=== PATIENT | female | born 1960 | race Caucasian/White ===

== ENCOUNTER 2024-07-15 06:49 | Emergency (ER) | payer OTHER, BC, SELFPAY ==
[2024-07-15 06:49] VITALS: BMI 37.8
[2024-07-15 07:12] VITALS: BP 164/80; PULSE 89; RESP 18; TEMP 36.6; O2SAT 96; BMI 39.2
--- NOTE | 2024-07-15 07:12 | PC.NURSE ---
pain lower right quadrant started 5 days ago describes it as throbbing and shooting pain
--- NOTE | 2024-07-15 07:19 | XR_ITS ---
Examination: CT abdomen and pelvis without contrast. Coronal 3-D reconstructions. Sagittal 2-D reconstructions. Date and time of exam:July 15, 2024 0740 hrs. Indications: Right upper abdominal pain beginning 5 days ago, hysterectomy cholecystectomy CTDI: vol (mGy): 14.9 DLP: (mGycm): 784 Technique: Axial images of the abdomen have been obtained, 3 mm slice thickness Intravenous contrast material has not been administered. Low dose protocols were performed. One or more of the following dose reduction techniques were used; automated exposure control, adjustment of the mA and/or KV according to patient size, use of iterative reconstruction technique. Findings: Thickening of the gastric mucosa in the antral region axial image 59 No focal liver or splenic lesion Absent gallbladder No pancreatic or adrenal mass No renal or ureteral calculi, no hydronephrosis Aorta normal size Normal appendix No bowel obstruction No diverticulitis Contracted urinary bladder Absent uterus No adnexal mass Moderate osteopenia Impression: Thickening of the mucosa in the gastric antrum, consider antral gastritis
--- NOTE | 2024-07-15 07:20 | PD.EDRME ---
Rapid Medical Screening Exam RME Arrival date/time: 07/15/24 06:49 63-year-old female with past medical history of hysterectomy presents emergency department complaining of right lower quadrant abdominal pain that is been ongoing for 5 days. Chief Complaint: Abdominal Pain Vital signs: Vital Signs Temperature 97.8 F 07/15/24 07:12 Pulse Rate 89 07/15/24 07:12 Respiratory Rate 18 07/15/24 07:12 Blood Pressure 164/80 H 07/15/24 07:12 Pulse Oximetry (%) 96 07/15/24 07:12 Oxygen Delivery Method Room Air 07/15/24 07:12 Vital signs reviewed by provider: Yes
[2024-07-15 08:10] LABS: Collection Type, Urine Clean Catch; RBC,Urine 0 /hpf (0-3)
[2024-07-15 08:17] LABS: Basophils % (Auto) 1 % (0-2.5); Eosinophils # (Auto) 0.2 Thou/mm3 (0.0-0.5); Eosinophils % (Auto) 3 % (0-10); Hematocrit 36.3 % (36.0-46.0); Hemoglobin 12.1 g/dL (12.0-16.0); Immature Granulocytes % (Auto) 0 % (0-0); Immature Granulocytes Auto 0.02 Thou/mm3 (0.00-0.00); Lymphocytes # (Auto) 1.6 Thou/mm3 (1.0-4.8); Lymphocytes % (Auto) 24 % (10-50); Mean Corpuscular HGB Conc 33.3 g/dl (31.0-37.0); Mean Corpuscular Volume 87 fL (80-100); Monocytes # (Auto) 0.5 Thou/mm3 (0.0-0.8); Monocytes % (Auto) 8 % (0-12); Neutrophils # (Auto) 4.1 Thou/mm3 (1.8-7.7); Neutrophils % (Auto) 64 % (37-80); Nucleated Red Blood Cell % 0 /100 WBC (0); Platelet Count 178 Thou/mm3 (140-440); RDW Standard Deviation 43.6 fL (36.4-46.3); Red Blood Count 4.17 Miln/mm3 (4.00-5.20); White Blood Count 6.4 Thou/mm3 (3.6-11.0)
[2024-07-15 08:37] LABS: Alanine Aminotransferase 23 U/L (10-49); Albumin, Serum 4.6 gm/dL (3.4-4.8); Albumin/Globulin Ratio 1.7 (1.2-2.2); Alkaline Phosphatase 121 U/L (46-116); Anion Gap 7 (7-16); Aspartate Amino Transferase 21 U/L (0-34); BUN/Creatinine Ratio 13 Ratio (12-20); Bilirubin,Total 0.5 mg/dL (0.3-1.2); Blood Urea Nitrogen 13 mg/dL (9-23); Calcium 9.5 mg/dL (8.3-10.6); Calcium (Corrected) 9.5 mg/dL (8.5-10.1); Carbon Dioxide 28.4 mMol/L (20.0-31.0); Chloride 102 mMol/L (98-107); Estimated Creatinine Clearance 69.3 mL/min (>60); Globulin 2.7 gm/dL (2.3-3.5); Glucose 100 mg/dL (74-106); Lipase 53 U/L (12-53); Osmolality,Calculated 273 (275-295); Sodium 137 mMol/L (136-145); Total Protein 7.3 gm/dL (5.7-8.2); eGFR > 60 See Note
[2024-07-15 08:39] LABS: Bilirubin,Urine Negative (Negative); Blood,Urine Negative (Negative); Clarity,Urine Clear (Clear/Hazy); Color,Urine Colorless (Lt Yel-Yel); Culture Indicated,Urine Not Indicated; Glucose, Urine Negative (Negative); Ketones,Urine Negative (Negative); Leukocyte Esterase,Urine Negative (Negative); Nitrite,Urine Negative (Negative); PH,Urine 6.5 (5.0-7.0); Protein,Urine Negative (Neg - Trace); Specific Gravity,Urine 1.007 (1.001-1.035); Squamous Epithelial Cell,Urine 1 /hpf (0-5); Urobilinogen,Urine Negative mg/dL (0.0-1.0); WBC,Urine < 1 /hpf (0-5)
[2024-07-15] MEDS: KETOROLAC INJ 60 MG/2 ML VIAL 30 MG IM (09:00)
--- NOTE | 2024-07-15 09:21 | EDNOTE_ITS ---
ED Abdominal Pain RME/HPI General Chief Complaint: Abdominal Pain Stated complaint: RIGHT LOWER ABD PAIN Time seen by provider: 07/15/24 08:05 Arrival date/time: 07/15/24 06:49 63-year-old female with past medical history of hysterectomy presents emergency department complaining of right lower quadrant abdominal pain that is been ongoing for 5 days. Patient denies any fever, chills, nausea vomiting, diarrhea, dysuria, hematuria, vaginal bleeding, or any other associated symptom. Source: patient Mode of arrival: ambulatory Limitations: no limitations RME / HPI RME / HPI narrative: 07/15/24 06:49 63-year-old female with past medical history of hysterectomy presents emergency department complaining of right lower quadrant abdominal pain that is been ongoing for 5 days. Related Data Home Medications ?Medication ?Instructions ?Recorded ?Confirmed lisinopril 40 mg tablet 40 mg PO QDAY 10/30/19 09/03/23 fluoxetine 40 mg capsule 40 mg PO DAILY 09/02/23 09/03/23 omeprazole magnesium 20 mg 20 mg PO QDAY 09/02/23 09/03/23 tablet,delayed release (Prilosec OTC) Previous Rx's ?Medication ?Instructions ?Recorded ibuprofen 800 mg tablet 800 mg PO TID PRN pain #30 tabs 09/01/23 docusate sodium 100 mg capsule 100 mg PO BID #40 caps 09/03/23 (Colace) hydrocodone 5 mg-acetaminophen 325 1 tab PO Q6H PRN pain (scale score 09/03/23 mg tablet 7-10) #20 tabs ibuprofen 600 mg tablet 600 mg PO Q8H PRN pain (scale 09/03/23 score 4-6) #15 tabs acetaminophen 300 mg-codeine 30 mg 1 tab PO TID PRN pain #20 tabs 10/15/23 tablet Allergies Allergy/AdvReac Type Severity Reaction Status Date / Time rifampin Allergy Mild Rash Verified 07/15/24 06:52 Sulfa (Sulfonamide Allergy Unknown Rash Verified 07/15/24 06:52 Antibiotics) Review of Systems Review of Systems Systems Reviewed: All systems reviewed, normal except as documented Constitutional Constitutional: Reports system reviewed and no additional complaints, except as documented, Denies body ache(s), Denies chills and Denies fever(s) Eyes Eyes: Reports system reviewed and no additional complaints, except as documented and Denies change in vision ENT Ears, Nose, Mouth, and Throat: Reports system reviewed and no additional complaints, except as documented, Denies disequilibrium, Denies dizziness, Denies sore throat and Denies vertigo Cardiovascular Cardiovascular: Reports system reviewed and no additional complaints, except as documented, Denies chest pain and Denies dyspnea Respiratory Respiratory: Reports system reviewed and no additional complaints, except as documented, Denies chest congestion, Denies cough and Denies dyspnea Gastrointestinal Gastrointestinal: Reports system reviewed and no additional complaints, except as documented, Reports abdominal pain, Denies nausea and Denies vomiting Musculoskeletal Musculoskeletal: Reports system reviewed and no additional complaints, except as documented, Denies abnormal gait and Denies arthralgias Integumentary/Breasts Skin/Breast: Reports system reviewed and no additional complaints, except as documented, Denies erythema, Denies rash and Denies wounds Neurologic Neurologic: Reports system reviewed and no additional complaints, except as documented, Denies abnormal gait, Denies disequilibrium, Denies dizziness and Denies vertigo Past Medical History Past Medical History NEUROLOGIC: Negative Neurological Disorders or Seizures CARDIAC: Positive Cardiac Disorders and Hypertension; Negative Congestive Heart Failure RESPIRATORY: Positive Asthma and Bronchitis; Negative Chronic Obstructive Pulmonary Disease (COPD) GASTROINTESTINAL: Positive Gastrointestinal Disorders, Gall Bladder Disease, Irritable Bowel and Obesity GENITOURINARY: Negative Genitourinary Disorders or Renal Disease REPRODUCTIVE: Positive Previous Pregnancies (x2) MUSCULOSKELETAL: Positive Musculoskeletal Disorders and Fibromyalgia ENDOCRINE: Negative Endocrine Disorders, Diabetes Mellitus Type 1 or Diabetes Mellitus Type 2 HEMATOLOGIC: Negative Blood Disorders PSYCHO/SOCIAL: Positive Depression and Anxiety OTHER HISTORY: Positive Hospitalization (surgery), Chicken Pox, Cancer and Cervical Cancer (1996); Negative Autoimmune Disease, Shingles, Blood Transfusions, Blood Transfusion Reaction or Anesthesia Reactions Family History FAMILY HISTORY: Positive Family Psychiatric Problems, Family Cardiac Disorders and Family Cancer; Negative Family Respiratory Disorders, Family Gastrointestinal Problems, Family Surgery or Family Anesthesia Reaction Surgical History SURGICAL: Positive Nose Surgery (sinus x5) and Hysterectomy Social History SMOKING STATUS: Never smoker ED Exam General Limitations: Present no limitations General appearance: Present alert and in no apparent distress Head Head exam: Present atraumatic Eye Eye exam: Present normal appearance, PERRL and EOMI ENT ENT exam: Present normal exam, normal oropharynx and mucous membranes moist Neck Neck exam: Present normal inspection, full ROM and trachea midline Chest Chest inspection: Present normal inspection and symmetric chest wall rise Respiratory Respiratory exam: Present normal lung sounds bilaterally Cardiovascular Cardiovascular exam: Present regular rate, normal rhythm and normal heart sounds Abdominal Exam Abdominal exam: Present soft and normal bowel sounds; Absent distention, t enderness, guarding, rebound or tenderness at McBurney's Point Extremities Exam Extremities exam: Present normal inspection and full ROM Back Exam Back exam: Present normal inspection and full ROM Neurological Exam Neurological exam: Present alert, oriented X3 and CN II-XII intact Psychiatric Psychiatric exam: Present normal affect and normal mood Skin Skin exam: Present warm, dry, intact and normal color Course Quality Measures none Orders Category Date Time Status CT abdomen pelvis wo con Stat Exams 07/15/24 07:19 Completed CBC Stat Lab 07/15/24 07:57 Completed CMP [Comprehensive Metabolic Panel] Stat Lab 07/15/24 07:57 Completed Lipase Stat Lab 07/15/24 07:57 Completed Urinalysis, C/S if Indicated Stat Lab 07/15/24 07:27 Completed Ketorolac Inj [Toradol Inj] Med 07/15/24 07:20 Discontinued 30 mg IM X1 ONE Vital Signs Vital signs: Vital Signs Temperature 97.8 F 07/15/24 07:12 Pulse Rate 89 07/15/24 07:12 Respiratory Rate 18 07/15/24 07:12 Blood Pressure 164/80 H 07/15/24 07:12 Pulse Oximetry (%) 96 07/15/24 07:12 Oxygen Delivery Method Room Air 07/15/24 07:12 96% room air within normal limits Abdominal Pain MDM MDM Narrative MDM Narrative:: 63-year-old female with past medical history of hysterectomy presents emergency department complaining of right lower quadrant abdominal pain that is been ongoing for 5 days. Patient denies any fever, chills, nausea vomiting, diarrhea, dysuria, hematuria, vaginal bleeding, or any other associated symptom. Patient's abdomen is soft and nontender. CBC was negative for any leukocytosis. CMP was unremarkable for any transaminitis or gross electrolyte abnormalities. Urinalysis was within normal limits. CT abdomen pelvis findings; Findings: Thickening of the gastric mucosa in the antral region axial image 59 No focal liver or splenic lesion Absent gallbladder No pancreatic or adrenal mass No renal or ureteral calculi, no hydronephrosis Aorta normal size Normal appendix No bowel obstruction No diverticulitis Contracted urinary bladder Absent uterus No adnexal mass Moderate osteopenia Patient denies any nausea vomiting, epigastric pain, or heartburn. Patient appears nontoxic and hemodynamically stable. Patient discharged home on omeprazole and instructed to follow-up with primary care provider in 2 to 3 days and return immediately to the emergency department for any worsening symptoms or as needed. Patient data External records reviewed:: [facility] previous records Clinical information provided by:: patient Social determinants that could affect healthcare access:: none Patient has the following chronic illnesses:: See chart How is presenting disease/condition affected by chronic disease/condition?: uneffected by Evaluation data The following diagnostics were reviewed and interpreted by me:: lab results and radiology exam(s) Lab and/or radiology exams considered but not ordered:: Ordered Interpretation Summary: Interpreted by me Medications / Prescriptions Medications or Prescriptions considered but not ordered:: Ordered Medication administrations:: Medication Administration History Discontinued Medications Ketorolac Tromethamine (Ketorolac Inj 60 Mg/2 Ml Vial) 30 mg IM X1 ONE Stop: 07/15/24 07:21 Last Admin: 07/15/24 09:00 Dose: 30 mg Documented By: EF Given Consultations Consultation(s) initiated? (list below): No Diagnosis Differential diagnosis abdominal pain: abdominal pain, acute appendicitis, calculus of kidney, constipation, diverticulitis, gastroenteritis, pancreatitis and small bowel obstruction Most likely diagnosis given after review of the tests above:: Abdominal pain Gastritis Admission Indicated Admission indicated?: not indicated Admission Request Was there a request for admission?: No Disposition Plan Disposition Plan: Discharge Discharge Attestation Discharge Attestation: The patient and all family members were given an opportunity to ask questions and understood the discharge instructions. Discharge instructions specifically effects, indications for sooner follow up or return to the emergency department, and the expected course of current diagnosis. Patient condition: Stable Discharge Plan Plan Patient Disposition: HOME (Self Care) Disposition Comment: Stable Prescriptions/Referrals Prescriptions/Med Rec: No Action lisinopril 40 mg Tablet 40 mg PO QDAY ibuprofen 800 mg tablet 800 mg PO TID PRN (Reason: pain) Qty: 30 0RF acetaminophen-codeine 300-30 mg tablet 1 tab PO TID PRN (Reason: pain) Qty: 20 0RF fluoxetine 40 mg capsule 40 mg PO DAILY Patient Comments: TAKE 1 CAPSULE BY MOUTH EVERY DAY FOR 90 DAYS omeprazole magnesium [Prilosec OTC] 20 mg Tablet,Delayed Release (Dr/Ec) 20 mg PO QDAY docusate sodium [Colace] 100 mg capsule 100 mg PO BID Qty: 40 0RF hydrocodone-acetaminophen 5-325 mg tablet 1 tab PO Q6H MDD 4 PRN (Reason: pain (scale score 7-10)) Qty: 20 0RF ibuprofen 600 mg tablet 600 mg PO Q8H PRN (Reason: pain (scale score 4-6)) Qty: 15 0RF Referrals: Brenda Johnson MD [Primary Care Provider] - In 1 week Problem List Clinical Impression: Abdominal pain, Gastritis Patient/Caregiver Discharge Instructions Discharge Activity: activity as tolerated Education Materials: Abdominal Pain, ED Gastritis (Adult) Additional Instructions: Continue taking omeprazole as prescribed. Follow-up with primary care provider and GI specialist for colonoscopy that you have pending as we discussed. Return to the emergency department for any worsening symptoms or as needed. Print Language: Brazilian Stand Alone Forms: [employer] Award Info., Patient Portal Info Letter PA/HEALTH INFORMATION MANAGEMENT DIRECTOR Supervising Physician PA/HEALTH INFORMATION MANAGEMENT DIRECTOR Supervising Physician: Dr. Mckeon
== END 2024-07-15 09:38 | disposition home or self-care (01) ==
PROVIDERS: Emergency Provider Emergency Medicine; PCP Family Medicine
DX: K29.70 Gastritis, unspecified, without bleeding (principal); Z90.710 Acquired absence of both cervix and uterus
CPT/HCPCS: 36415; 74176; 80053; 81001; 83690; 85025; 96372; 99284; J1885

== ENCOUNTER 2024-09-13 08:55 | Day surgery (SDC) | payer OTHER, BC, SELFPAY ==
[2024-09-12 15:21] VITALS: BMI 38.6
[2024-09-13] VITALS (10 sets, daily range): BP systolic 104–168; BP diastolic 67–108; PULSE 65–86; RESP 12–18; TEMP 36.2–36.4; O2SAT 94–98; BMI 37.8
[2024-09-13] MEDS: ONDANSETRON INJ 2 MG/ML INJ 2 ML 4 MG IV (11:02)
[2024-09-13] MEDS: fentaNYL CIT INJ 50 mCg/ML AMP 2ML (ASD USE ONLY) 25 MCG IV (11:03)
[2024-09-13] MEDS: SODIUM CHLORIDE 0.9% 100 ML IV (11:03)
[2024-09-13] MEDS: DiphenhydrAMINE INJ 50 MG/ML VIAL 25 MG IV (11:03)
[2024-09-13] MEDS: MIDAZOLAM INJ 1 MG/ML VIAL 2 ML (ASD USE ONLY) 2 MG IV (11:04)
== END 2024-09-13 11:40 | disposition home or self-care (01) ==
PROVIDERS: PCP Family Medicine; Referring Provider Specialist; Visit Provider Specialist
PROC: 0DBE8ZX Excision of Large Intestine, Via Natural or Artificial Opening Endoscopic, Diagnostic (ICD-10-PCS; CPT 45380; principal; 2024-09-13 11:30)
DX: K63.89 Other specified diseases of intestine (principal); K62.89 Other specified diseases of anus and rectum; K64.9 Unspecified hemorrhoids; K57.30 Diverticulosis of large intestine without perforation or abscess without bleeding
CPT/HCPCS: 45380; A4649; J1200; J2250; J2405; J3010; J7050

== ENCOUNTER 2024-10-18 21:06 | Emergency (ER) | payer OTHER, BC, SELFPAY ==
[2024-10-18 21:07] VITALS: BMI 37.8
--- NOTE | 2024-10-18 21:15 | XR_ITS ---
Examination: Foot, right, 3 views Technique: AP, oblique, lateral views foot, 3 views Date and time of exam: October 18, [id number] hrs. Indications: Twisting injury to the foot today, foot pain Findings: Acute fracture proximal fifth metatarsal No significant displacement Impression: Acute fracture proximal fifth metatarsal
--- NOTE | 2024-10-18 21:15 | XR_ITS ---
EXAMINATION: Ankle, right 3 views . Technique: Ankle AP, oblique, lateral 3 views Date and time of exam: October 18, [id number] hrs. Indications: Twisting injury to the ankle today, ankle pain. Findings: No acute fracture No ankle dislocation Impression: No acute fracture
[2024-10-18 21:47] VITALS: BP 143/80; PULSE 81; RESP 18; TEMP 36.9; O2SAT 95
--- NOTE | 2024-10-18 21:48 | PD.EDANKLE ---
Lower Extremity Injury RME/HPI General Chief Complaint: Ankle/Foot Injury Stated Complaint: RIGHT PAIN HEAR A LOUD POP Time Seen by Provider: 10/18/24 21:34 Arrival date/time: 10/18/24 21:06 64F with history of HTN presents to ED with R foot pain after she stepped wrong. Limitations: no limitations Related Data Home Medications ?Medication ?Instructions ?Recorded ?Confirmed lisinopril 40 mg tablet 40 mg PO QDAY 10/30/19 09/13/24 fluoxetine 40 mg capsule 40 mg PO DAILY 09/02/23 09/13/24 omeprazole magnesium 20 mg 20 mg PO QDAY 09/12/24 09/13/24 tablet,delayed release (Prilosec OTC) Allergies Allergy/AdvReac Type Severity Reaction Status Date / Time rifampin Allergy Mild Dizziness Verified 09/13/24 09:26 Sulfa (Sulfonamide Allergy Unknown SYNCOPE Verified 09/13/24 09:26 Antibiotics) Review of Systems Review of Systems Systems Reviewed: All systems reviewed, normal except as documented Constitutional Constitutional: Reports system reviewed and no additional complaints, except as documented, Denies fever(s) and Denies headache(s) ENT Ears, Nose, Mouth, and Throat: Denies disequilibrium and Denies headache(s) Cardiovascular Cardiovascular: Reports system reviewed and no additional complaints, except as documented, Denies chest pain and Denies dyspnea Respiratory Respiratory: Reports system reviewed and no additional complaints, except as documented, Denies cough and Denies dyspnea Gastrointestinal Gastrointestinal: Reports system reviewed and no additional complaints, except as documented, Denies abdominal pain, Denies nausea and Denies vomiting Musculoskeletal Musculoskeletal: Reports as per HPI and Reports arthralgias Neurologic Neurologic: Reports system reviewed and no additional complaints, except as documented, Denies confusion, Denies disequilibrium and Denies headache(s) Psychiatric Psychiatric: Denies confusion Past Medical History Past Medical History NEUROLOGIC: Negative Neurological Disorders or Seizures CARDIAC: Positive Cardiac Disorders and Hypertension; Negative Congestive Heart Failure RESPIRATORY: Positive Asthma and Bronchitis; Negative Chronic Obstructive Pulmonary Disease (COPD) GASTROINTESTINAL: Positive Gastrointestinal Disorders, Gall Bladder Disease, Irritable Bowel and Obesity GENITOURINARY: Negative Genitourinary Disorders or Renal Disease REPRODUCTIVE: Positive Previous Pregnancies MUSCULOSKELETAL: Positive Musculoskeletal Disorders and Fibromyalgia ENDOCRINE: Negative Endocrine Disorders, Diabetes Mellitus Type 1 or Diabetes Mellitus Type 2 HEMATOLOGIC: Negative Blood Disorders PSYCHO/SOCIAL: Positive Depression and Anxiety OTHER HISTORY: Positive Hospitalization, Chicken Pox, Cancer and Cervical Cancer; Negative Autoimmune Disease, Shingles, Blood Transfusions or Anesthesia Reactions Family History FAMILY HISTORY: Positive Family Psychiatric Problems, Family Cardiac Disorders and Family Cancer; Negative Family Respiratory Disorders, Family Gastrointestinal Problems, Family Surgery or Family Anesthesia Reaction Surgical History SURGICAL: Positive Nose Surgery (sinus sx) and Hysterectomy Social History SMOKING STATUS: Never smoker ED Exam General Limitations: Present no limitations General appearance: Present alert and in no apparent distress Head Head exam: Present atraumatic Eye Eye exam: Present normal appearance, PERRL and EOMI ENT ENT exam: Present normal exam, normal oropharynx and mucous membranes moist Neck Neck exam: Present normal inspection, full ROM and trachea midline Chest Chest inspection: Present normal inspection and symmetric chest wall rise Respiratory Respiratory exam: Present normal lung sounds bilaterally Cardiovascular Cardiovascular exam: Present regular rate, normal rhythm and normal heart sounds Abdominal Exam Abdominal exam: Present soft and normal bowel sounds Extremities Exam Extremities exam: Present full ROM Expanded Lower Extremity Exam Foot/toe exam: Present full ROM (R lateral foot), tenderness and swelling Back Exam Back exam: Present normal inspection and full ROM Neurological Exam Neurological exam: Present alert, oriented X3 and CN II-XII intact Psychiatric Psychiatric exam: Present normal affect and normal mood Skin Skin exam: Present warm, dry, intact and normal color Course Quality Measures none Orders Category Date Time Status Crutches .NOW Care 10/18/24 21:34 Completed Splint / Immobilizer STAT Care 10/18/24 21:34 Completed XR ankle comp RT min 3V Stat Exams 10/18/24 21:15 Completed XR foot comp RT min 3V Stat Exams 10/18/24 21:15 Completed Vital Signs Vital signs: Vital Signs Temperature 98.4 F 10/18/24 21:47 Pulse Rate 81 10/18/24 21:47 Respiratory Rate 18 10/18/24 21:47 Blood Pressure 143/80 H 10/18/24 21:47 Pulse Oximetry (%) 95 10/18/24 21:47 Oxygen Delivery Method Room Air 10/18/24 21:47 O2 at 95% on RA and WNLs Extremity Injury, Lower MDM Narrative MDM Narrative:: 64F with history of HTN presents to ED with R foot pain after she stepped wrong. Physical exam reveals R lateral foot tenderness. ROM intact. Patient is afebrile, calm, and alert. XR reveals proximal R 5th metatarsal fx. Given splint, crutches, and parliamentary counsel. Patient data External records reviewed:: [facility] previous records Clinical information provided by:: patient Social determinants that could affect healthcare access:: none Patient has the following chronic illnesses:: HTN How is presenting disease/condition affected by chronic disease/condition?: uneffected by Evaluation data The following diagnostics were reviewed and interpreted by me:: radiology exam(s) Lab and/or radiology exams considered but not ordered:: ordered Interpretation Summary: above Medications / Prescriptions Medications or Prescriptions considered but not ordered:: not ordered Medication administrations:: n/a Consultations Consultation(s) initiated? (list below): No Diagnosis Extremity Injury, Lower Differential Diagnosis: ankle sprain and strain, acute internal derangement of knee, puncture wound of foot, fracture of toe, ankle fracture and other (foot fx) Most likely diagnosis given after review of the tests above:: foot fx Admission Indicated Admission indicated?: not indicated Admission Request Was there a request for admission?: No Disposition Plan Disposition Plan: Discharge Discharge Attestation Discharge Attestation: The patient and all family members were given an opportunity to ask questions and understood the discharge instructions. Discharge instructions specifically effects, indications for sooner follow up or return to the emergency department, and the expected course of current diagnosis. Patient condition: Stable Discharge Plan Plan Patient Disposition: HOME (Self Care) Disposition Comment: Stable Prescriptions/Referrals Prescriptions/Med Rec: No Action lisinopril 40 mg Tablet 40 mg PO QDAY fluoxetine 40 mg capsule 40 mg PO DAILY Patient Comments: TAKE 1 CAPSULE BY MOUTH EVERY DAY FOR 90 DAYS omeprazole magnesium [Prilosec OTC] 20 mg tablet,delayed release (DR/EC) 20 mg PO QDAY Referrals: No Primary/Family,Physician [Primary Care Provider] - In 1 week Problem List Clinical Impression: Foot fracture Patient/Caregiver Discharge Instructions Education Materials: ED Fracture, Foot Additional Instructions: Please follow-up with PCP within 24-48 hours and return immediately if symptoms worsen. Follow-up with ortho to get cast or if surgery is needed. Print Language: French Stand Alone Forms: Patient Portal Info Letter PA/FIELD OPERATIONS MANAGER Supervising Physician PA/FIELD OPERATIONS MANAGER Supervising Physician: Dr. Lucio
== END 2024-10-18 22:52 | disposition home or self-care (01) ==
PROVIDERS: Emergency Provider Emergency Medicine
DX: S92.351A Displaced fracture of fifth metatarsal bone, right foot, initial encounter for closed fracture (principal); X58.XXXA Exposure to other specified factors, initial encounter; I10 Essential (primary) hypertension
CPT/HCPCS: 29515; 73610; 73630; 99283

== ENCOUNTER → 2024-11-02 | Outpatient (CLI) | payer OTHER, BC, SELFPAY ==
[2024-11-02 08:41] LABS: Basophils % (Auto) 1 % (0-2.5); Eosinophils # (Auto) 0.2 Thou/mm3 (0.0-0.5); Eosinophils % (Auto) 4 % (0-10); Hematocrit 34.7 % (36.0-46.0); Hemoglobin 11.4 g/dL (12.0-16.0); Immature Granulocytes % (Auto) 0 % (0-0); Immature Granulocytes Auto 0.01 Thou/mm3 (0.00-0.00); Lymphocytes # (Auto) 1.1 Thou/mm3 (1.0-4.8); Lymphocytes % (Auto) 27 % (10-50); Mean Corpuscular HGB Conc 32.9 g/dl (31.0-37.0); Mean Corpuscular Hemoglobin 28.4 pg (25.0-35.0); Mean Corpuscular Volume 86 fL (80-100); Monocytes # (Auto) 0.3 Thou/mm3 (0.0-0.8); Monocytes % (Auto) 8 % (0-12); Neutrophils # (Auto) 2.3 Thou/mm3 (1.8-7.7); Neutrophils % (Auto) 60 % (37-80); Nucleated Red Blood Cell % 0 /100 WBC (0); Platelet Count 153 Thou/mm3 (140-440); Red Blood Count 4.02 Miln/mm3 (4.00-5.20); White Blood Count 3.9 Thou/mm3 (3.6-11.0)
[2024-11-02 09:00] LABS: Glucose Estimated Average 120 mg/dL (80-131); Hemoglobin A1C 5.8 % Hgb (4.8-6.0)
[2024-11-02 09:08] LABS: Collection Type, Urine Clean Catch
[2024-11-02 09:08] LABS: Alanine Aminotransferase 21 U/L (10-49); Albumin, Serum 3.9 gm/dL (3.4-4.8); Albumin/Globulin Ratio 1.6 (1.2-2.2); Alkaline Phosphatase 98 U/L (46-116); Anion Gap 6 (7-16); Aspartate Amino Transferase 13 U/L (0-34); BUN/Creatinine Ratio 14 Ratio (12-20); Bilirubin,Total 0.7 mg/dL (0.3-1.2); Blood Urea Nitrogen 13 mg/dL (9-23); Calcium 8.9 mg/dL (8.3-10.6); Carbon Dioxide 27.9 mMol/L (20.0-31.0); Cardiac Risk Estimate 3.8 RATIO (3.7-5.6); Chloride 106 mMol/L (98-107); Cholesterol 203 mg/dL (132-200); Creatinine (Component) 0.9 mg/dL (0.6-1.3); Globulin 2.4 gm/dL (2.3-3.5); Glucose 99 mg/dL (74-106); HDL Cholesterol 54 mg/dL (40-60); LDL Cholesterol,Calculated 131 mg/dL (0-130); Osmolality,Calculated 279 (275-295); Sodium 140 mMol/L (136-145); Thyroid Stimulating Hormone 3.16 uIU/mL (0.55-4.78); Total Protein 6.3 gm/dL (5.7-8.2); Triglycerides 90 mg/dL (30-150); eGFR > 60 See Note
[2024-11-02 10:18] LABS: Bilirubin,Urine Negative (Negative); Blood,Urine Negative (Negative); Clarity,Urine Clear (Clear/Hazy); Color,Urine Yellow (Lt Yel-Yel); Glucose, Urine Negative (Negative); Ketones,Urine Negative (Negative); Leukocyte Esterase,Urine Negative (Negative); Nitrite,Urine Negative (Negative); Protein,Urine Negative (Neg - Trace); RBC,Urine 2 /hpf (0-3); Specific Gravity,Urine 1.029 (1.001-1.035); Squamous Epithelial Cell,Urine 4 /hpf (0-5); Urobilinogen,Urine Negative mg/dL (0.0-1.0); WBC,Urine 2 /hpf (0-5)
== END | disposition home or self-care (01) ==
PROVIDERS: PCP Family Medicine; Referring Provider Family Medicine; Visit Provider Family Medicine
DX: I10 Essential (primary) hypertension (principal); R73.03 Prediabetes
CPT/HCPCS: 36415; 80053; 80061; 81001; 83036; 84443; 85025

== ENCOUNTER → 2025-02-14 | Outpatient (CLI) | payer OTHER, BC, SELFPAY ==
--- NOTE | 2025-02-14 13:00 | XR_ITS ---
Examination: CT maxillofacial, without intravenous contrast. 2-D sagittal reconstructions. 3-D reconstructions. Date and time of exam:February 14, 2025 1318 hours INDICATIONS: Diagnosis of allergic rhinitis, sinus pressure and pain 20 years, history sinus surgery 20 years ago CTDI: vol (mGy):7.06 DLP: (mGycm):98.3 Technique: Multiple axial images of maxillofacial region, 3.0 mm slice thickness. 2-D sagittal and coronal reconstructions. 3-D reconstructions. Low dose protocols were performed. One or more of the following dose reduction techniques were used; automated exposure control, adjustment of the mA and/or KV according to patient size, use of iterative reconstruction technique. Findings: Trace mucosal thickening frontal air cells 1 mm Minimal chronic mucosal thickening in the ethmoid air cells Surgical defects in the medial breen of the maxillary antra Mucosal thickening in the nasal airways measuring up to 3 mm Trace mucosal thickening 1 mm in the maxillary antra. IMPRESSION: Minimal chronic sinusitis
== END | disposition home or self-care (01) ==
LOC: CCTX 12:41
PROVIDERS: Referring Provider Allergy & Immunology; Visit Provider Allergy & Immunology
DX: J32.8 Other chronic sinusitis (principal)
CPT/HCPCS: 70486

== ENCOUNTER → 2025-05-23 | Outpatient (CLI) | payer BC, SELFPAY ==
--- NOTE | 2025-05-23 08:45 | XR_ITS ---
Examination: Abdomen sonogram, complete Date and time of exam: May 23, 2025, 0841 hours INDICATIONS: Right upper abdominal pain beginning 1 month ago. Technique: Multiple real-time grayscale transabdominal sonographic images of the abdomen have been obtained. Findings: Absent gallbladder. Normal common bile duct 0.5 cm Pancreatic head 2.7 cm Aorta not enlarged. Liver 14.9 cm fatty infiltration no focal liver lesions Normal hepatopetal portal venous flow Patent IVC Right kidney 8.9 cm renal cortex 1.7 cm Left kidney 10.5 cm renal cortex 2.6 cm Moderate renal scar formation Spleen 10.7 cm IMPRESSION: Normal common bile duct Fatty infiltration throughout the liver Moderate bilateral renal parenchymal scar formation
[2025-05-23 09:55] LABS: Alanine Aminotransferase 25 U/L (10-49); Albumin, Serum 4.4 gm/dL (3.4-4.8); Albumin/Globulin Ratio 1.6 (1.2-2.2); Alkaline Phosphatase 108 U/L (46-116); Anion Gap 8 (7-16); Aspartate Amino Transferase 28 U/L (0-34); BUN/Creatinine Ratio 10 Ratio (12-20); Bilirubin,Total 0.4 mg/dL (0.3-1.2); Blood Urea Nitrogen 9 mg/dL (9-23); Calcium 9.6 mg/dL (8.3-10.6); Calcium (Corrected) 9.6 mg/dL (8.5-10.1); Carbon Dioxide 28.9 mMol/L (20.0-31.0); Chloride 104 mMol/L (98-107); Creatinine (Component) 0.9 mg/dL (0.6-1.3); Globulin 2.7 gm/dL (2.3-3.5); Glucose 89 mg/dL (74-106); Osmolality,Calculated 278 (275-295); Potassium 4.2 mMol/L (3.4-5.1); Sodium 141 mMol/L (136-145); Total Protein 7.1 gm/dL (5.7-8.2); eGFR > 60 See Note
== END | disposition home or self-care (01) ==
LOC: CDIM 08:32 → COPL 08:55
PROVIDERS: PCP Family Medicine; Referring Provider Family Medicine; Visit Provider Radiology Diagnostic Radiology
DX: K76.0 Fatty (change of) liver, not elsewhere classified (principal); N28.89 Other specified disorders of kidney and ureter; R10.84 Generalized abdominal pain
CPT/HCPCS: 36415; 76700; 80053

== ENCOUNTER → 2025-05-24 | Outpatient (CLI) | payer BC, SELFPAY ==
[2025-05-29 06:50] LABS: Helicobacter pylori Ag, Stool* NOT DETECTED (NOT DETECTED)
== END | disposition home or self-care (01) ==
LOC: COPL 07:55 → SLDO 07:55
PROVIDERS: Referring Provider Family Medicine; Visit Provider Family Medicine
DX: R10.84 Generalized abdominal pain (principal)
CPT/HCPCS: 87338